=== PATIENT | male | born 1985 | race Caucasian/White ===

== ENCOUNTER 2016-11-29 23:21 | Emergency (ER) | payer SELFPAY ==
[~2016-11-29] VITALS: Ht 188 cm; Wt 104.3 kg
[2016-11-30] LABS: Urine RBC None Seen /hpf (0 - 3)
[2016-11-30 00:14] LABS: Urine Bilirubin Negative (Negative); Urine Blood Negative /uL (Negative); Urine Color Yellow (Yellow); Urine Glucose Normal (Normal); Urine Ketone Negative (Negative); Urine Nitrite Negative (Negative); Urine Urobilinogen Normal (Negative); Urine pH 5.5 (5.0-8.0)
[2016-11-30 00:23] LABS: Basophils # (auto) 0.2 uL; Basophils % (auto) 2.6 % (0.0-2.0); Eosinophils # (auto) 0 uL; Hematocrit 43.9 % (41.0-53.0); Hemoglobin 14.5 g/dL (13.5-17.5); Lymphocytes # (auto) 0.9 uL; Lymphocytes % (auto) 10.8 % (10.0-50.0); Mean Corpuscular Hemoglobin 32.9 pg (28.0-32.0); Mean Corpuscular Volume 99.8 fL (80.0-100.0); Mean Platelet Volume 7.6 fL (7.4-10.4); Monocytes # (auto) 0.5 uL; Monocytes % (auto) 6.2 % (0.0-12.0); Neutrophils # (auto) 7.1 uL; Neutrophils % (auto) 80.4 % (37.0-80.0); Platelet Count (auto) 321 10^3/uL (140-450); Red Cell Distribution Width 14.7 % (11.6-16.0); SUSPECT VIEW TRANSMISSION; White Blood Cell 8.7 10^3/uL (4.4-10.8)
[2016-11-30 00:40] LABS: Albumin 3.7 g/dL (3.4-5.0); Anion Gap 12 (5-15); Aspartate Aminotransferase 15 U/L (15-37); Blood Urea Nitrogen 13 mg/dL (7-18); Carbon Dioxide 23 mmol/L (21-32); Chloride 105 mmol/L (98-107); GFR African American 113 mL/min; GFR Non-African American 93 mL/min; Glucose 101 mg/dL (74-106); Potassium 3.3 mmol/L (3.5-5.1); Salicylate < 1.7 mg/dL (2.8-20.0); Sodium 140 mmol/L (136-145)
[2016-11-30 00:43] LABS: Alkaline Phosphatase 69 U/L (45-117); Bilirubin, Total 0.4 mg/dL (0.2-1.0); Total Protein 8.4 g/dL (6.4-8.2)
[2016-11-30 00:53] LABS: Acetaminophen < 2.0 ug/mL (10-30)
[2016-11-30] MEDS ORDERED: SODIUM CHLORIDE 0.9% 1,000 ML IV ONE (09:00)
[2016-11-30] MEDS: SERTRALINE HCL 50 MG TAB PO SCH (10:35)
[2016-11-30] MEDS ORDERED: POTASSIUM CHL 10% (20 MEQ/15ML) ORAL SOLN PO ONE (10:45)
[2016-11-30] MEDS ORDERED: THIAMINE INJ 100 MG, MULTIPLE VITAMIN 10 ML, FOLIC ACID 1 MG, MAGNESIUM SULF SDV 50% 8 ... IV ONE ×5 (10:45)
[2016-11-30] MEDS ORDERED: SERT-138 PO (13:51)
[2016-11-30] MEDS ORDERED: CARI-277 PO (13:51)
[2016-11-30] MEDS ORDERED: PRE1T PO (13:51)
[2016-11-30] MEDS ORDERED: [UNRECOGNIZED DRUG - CODE] PO (13:51)
[2016-11-30] MEDS ORDERED: MESA400C OR (13:53)
[2016-12-02] MEDS: SERTRALINE HCL 50 MG TAB PO SCH ×2 (10:00→11:07)
[2016-12-02] MEDS: ACYCLOVIR 400 MG TAB PO SCH ×2 (11:07→20:10)
[2016-12-03] MEDS ORDERED: ACYCLOVIR 400 MG TAB ONE (07:57)
[2016-12-03] MEDS: ACYCLOVIR 400 MG TAB PO SCH (07:59)
[2016-12-03 08:08] VITALS: BP 114/65
[2016-12-03] MEDS: SERTRALINE HCL 50 MG TAB PO SCH (10:43)
== END 2016-12-03 11:01 | disposition home or self-care (01) ==
LOC: EDBD 23:21 → ER 23:33
DX: S51.812A Laceration without foreign body of left forearm, initial encounter (principal); T14.91 Suicide attempt; F29 Unspecified psychosis not due to a substance or known physiological condition; K50.90 Crohn's disease, unspecified, without complications; X78.1XXA Intentional self-harm by knife, initial encounter; Y93.89 Activity, other specified; Y99.8 Other external cause status; Y92.89 Other specified places as the place of occurrence of the external cause
CPT/HCPCS: 36415; 80053; 80320; 80329; 81001; 82962; 85025; 93005; 96361; 96365; 99285; G0434; J3411; J3475; J7030